=== PATIENT | male | born 1985 ===

== ENCOUNTER → 2022-10-21 | Outpatient (CLI) | payer OTHER | LOC: MHCPAIN 09:41 | DX: M47.812 Spondylosis without myelopathy or radiculopathy, cervical region (principal); M54.2 Cervicalgia; I10 Essential (primary) hypertension | CPT/HCPCS: G0463 ==

== ENCOUNTER → 2022-11-19 | Outpatient (CLI) | payer OTHER | LOC: MHCPAIN 09:35 | DX: M47.812 Spondylosis without myelopathy or radiculopathy, cervical region (principal); M54.2 Cervicalgia | CPT/HCPCS: J0461 ==

== ENCOUNTER → 2022-12-30 | Outpatient (CLI) | payer OTHER | LOC: MHCPAIN 09:05 | DX: M47.812 Spondylosis without myelopathy or radiculopathy, cervical region (principal); M54.2 Cervicalgia; I10 Essential (primary) hypertension | CPT/HCPCS: G0463 ==

== ENCOUNTER → 2023-05-31 | Outpatient (CLI) | payer OTHER | LOC: MHCPAIN 09:59 | DX: M54.2 Cervicalgia (principal); I10 Essential (primary) hypertension | CPT/HCPCS: G0463 ==